=== PATIENT | male | born 1985 | race African-American/Black ===

== ENCOUNTER 2025-01-27 21:16 | Emergency (ER) | payer BC ==
[2025-01-27] MEDS ORDERED: Ibuprofen 800 MG TAB ONE (21:32)
[2025-01-27] MEDS ORDERED: Acetaminophen 325 MG TAB ONE (21:32)
[2025-01-27] MEDS ORDERED: Bacitracin 1 PK ONE (21:32)
[2025-01-27] MEDS ORDERED: HYDROcodone/Acetaminophen 10/325 mg Tablet ONE (21:32)
== END 2025-01-27 23:05 | disposition home or self-care (01) ==
LOC: MADERS 21:16
DX: T21.21XA Burn of second degree of chest wall, initial encounter (principal); T22.252A Burn of second degree of left shoulder, initial encounter; T20.212A Burn of second degree of left ear [any part, except ear drum], initial encounter; T20.27XA Burn of second degree of neck, initial encounter; T31.0 Burns involving less than 10% of body surface; E78.5 Hyperlipidemia, unspecified; I10 Essential (primary) hypertension; Z79.899 Other long term (current) drug therapy
CPT/HCPCS: 99284